=== PATIENT | female | born 1995 | race Caucasian/White ===

== ENCOUNTER 2017-10-28 09:59 | Emergency (ER) | payer MEDICAID ==
[~2017-10-28] VITALS: Ht 157.5 cm; Wt 56.0 kg
[2017-10-28 10:08] VITALS: BP 117/72
== END 2017-10-28 11:35 | disposition left against medical advice (07) ==
LOC: ER 10:12
DX: F41.9 Anxiety disorder, unspecified (principal); Z53.21 Procedure and treatment not carried out due to patient leaving prior to being seen by health care provider